=== PATIENT | female | born 1945 | race Caucasian/White ===

== ENCOUNTER → 2016-05-03 | Outpatient (CLI) | payer MEDICARE, OTHER ==
[~2016-05-03] MED LIST: ASPIRIN E.C. 8181 MG PO; COQ10250 MG PO; FLAXSEED OIL1300 MG PO; LISINOPRIL20 MG PO; MULTIVITAMIN FO1 CAP PO; OMEGA-31000 MG PO; PREMARIN 0.60.625 M1 PO; TYLENOL 500MG500 MG PO
== END ==
LOC: MC.RAD 10:54
DX: Z12.31 Encounter for screening mammogram for malignant neoplasm of breast (principal)

== ENCOUNTER → 2017-05-30 | Outpatient (CLI) | payer MEDICARE | LOC: MC.RAD 07:19 | DX: Z12.31 Encounter for screening mammogram for malignant neoplasm of breast (principal) ==

== ENCOUNTER → 2018-08-11 | Outpatient (CLI) | payer MEDICARE, OTHER | LOC: MC.RAD 08-01 09:00 | DX: Z12.31 Encounter for screening mammogram for malignant neoplasm of breast (principal) ==

== ENCOUNTER → 2020-02-06 | Outpatient (CLI) | payer MEDICARE | LOC: COL.RAD 08:00 | DX: R10.11 Right upper quadrant pain (principal) ==

== ENCOUNTER → 2021-08-12 | Outpatient (CLI) | payer MEDICARE, OTHER | LOC: MC.RAD 14:40 | DX: Z12.31 Encounter for screening mammogram for malignant neoplasm of breast (principal) ==